=== PATIENT | female | born 1980 | race African-American/Black ===

== ENCOUNTER 2024-07-12 10:28 | Inpatient (IN) | payer MEDICARE ==
[~2024-07-12] VITALS: Ht 170.2 cm; Wt 104.8 kg
[2024-07-12 11:39] LABS: Urine Bacteria FEW /hpf (None Seen); Urine Blood Negative /uL (Negative); Urine Clarity Turbid (Clear); Urine Color Light-Yellow (Yellow); Urine Protein, UAD Negative (Negative); Urine Specific Gravity 1.006 (1.001-1.035); Urine Urobilinogen Normal (Negative); Urine WBC 4 /hpf (0 - 5); Urine pH 6.5 (5.0-9.0)
[2024-07-12 11:41] LABS: Basophils # (auto) 0 10 ^3/uL (0-0.2); Basophils % (auto) 0.7 % (0.0-2.0); Eosinophils # (auto) 0.7 10 ^3/uL (0-0.8); Eosinophils % (auto) 9.3 % (0.0-7.0); Hemoglobin 12.5 g/dL (12.2-16.2); Mean Corpuscular Hemoglobin 27.7 pg (28.0-32.0); Mean Corpuscular Hgb Conc. 34.6 g/dL (32.0-36.0); Mean Corpuscular Volume 80.2 fL (80.0-100.0); Monocytes # (auto) 0.8 10 ^3/uL (0-1.3); Monocytes % (auto) 11.5 % (0.0-12.0); Neutrophils # (auto) 2.6 10 ^3/uL (1.6-8.6); Neutrophils % (auto) 36.5 % (37.0-80.0); Nucleated Red Blood Cells % 0.1 %; Platelet Count (auto) 426 10^3/uL (140-450); Red Blood Cells 4.49 10^6/uL (4.0-5.20); Red Cell Distribution Width 14.7 % (11.8-14.3); White Blood Cell 7.1 10^3/uL (4.4-10.8)
[2024-07-12 11:43] LABS: Chloride 108 mmol/L (98-107); Potassium 3.6 mmol/L (3.5-5.1); Sodium 140 mmol/L (136-145)
[2024-07-12 11:44] LABS: Anion Gap 5 (5-15); Calcium 9.6 mg/dL (8.7-10.4); Carbon Dioxide 27 mmol/L (20-31)
[2024-07-12 11:49] LABS: BUN/Creatinine Ratio 11.5 (10.0-20.0); Blood Urea Nitrogen 6 mg/dL (9-23); Glucose 120 mg/dL (74-106)
[2024-07-12] MEDS: HYDROcodone-ACET 5/325MG TAB PO ONE (19:02)
[2024-07-12] MEDS ORDERED: MORPHINE SULFATE INJ 2 MG/ml SYRG IV PRN (23:30)
[2024-07-13] VITALS (8 sets, daily range): BP systolic 132–142; BP diastolic 76–92; PULSE 63–92; RESP 15–92; TEMP 97.3–98.1; O2SAT 92–98
[2024-07-13 00:20] LABS: Erythrocyte Sedimentation Rate 19 mm/hr (0-20)
[2024-07-13 06:41] LABS: Basophils % (auto) 0.8 % (0.0-2.0); Eosinophils # (auto) 0.6 10 ^3/uL (0-0.8); Nucleated Red Blood Cells % 0.1 %
[2024-07-13 06:45] LABS: Basophils # (auto) 0.1 10 ^3/uL (0-0.2); Eosinophils % (auto) 8.8 % (0.0-7.0); Hematocrit 35.4 % (36.0-46.0); Hemoglobin 11.7 g/dL (12.2-16.2); Lymphocytes # (auto) 2.9 10 ^3/uL (0.4-5.4); Lymphocytes % (auto) 43.2 % (10.0-50.0); Mean Corpuscular Hemoglobin 27.5 pg (28.0-32.0); Mean Corpuscular Volume 83.4 fL (80.0-100.0); Monocytes # (auto) 0.8 10 ^3/uL (0-1.3); Monocytes % (auto) 11.2 % (0.0-12.0); Neutrophils # (auto) 2.4 10 ^3/uL (1.6-8.6); Platelet Count (auto) 375 10^3/uL (140-450); Red Blood Cells 4.25 10^6/uL (4.0-5.20); Red Cell Distribution Width 14.8 % (11.8-14.3); White Blood Cell 6.7 10^3/uL (4.4-10.8)
[2024-07-13] MEDS: HYDROcodone-ACET 5/325MG TAB PO PRN (08:43)
[2024-07-13 10:18] LABS: Alanine Aminotransferase 19 U/L (7-40); Alkaline Phosphatase 96 U/L (46-116); Anion Gap 8 (5-15); Aspartate Aminotransferase 12 U/L (13-40); Bilirubin, Total 0.5 mg/dL (0.2-1.0); Blood Urea Nitrogen 6 mg/dL (9-23); Calcium 10.1 mg/dL (8.7-10.4); Carbon Dioxide 25 mmol/L (20-31); Chloride 107 mmol/L (98-107); Glucose 105 mg/dL (74-106); Potassium 3.9 mmol/L (3.5-5.1); Sodium 140 mmol/L (136-145); Total Protein 7.7 g/dL (5.7-8.2)
[2024-07-13 12:10] LABS: Free T3 7.43 pg/mL (2.3-4.2); Free T4 (Free Thyroxine) 2.68 ng/dL (0.89-1.76)
[2024-07-13] MEDS: FUROSEMIDE 40 MG/4 ML VIAL IV ONE (15:59)
[2024-07-13 17:43] LABS: Amphetamine Screen, Urine Neg (NEGATIVE); Barbiturate Scree,Urine Neg (NEGATIVE); Benzodiazephine Screen, Urine Neg (NEGATIVE); Cannabinoid Screen, Urine Neg (NEGATIVE); Cocaine Screen, Urine Neg (NEGATIVE); Opiate Scree,Urine Neg (NEGATIVE); Phencyclidine Screen, Urine Neg (NEGATIVE)
[2024-07-13] MEDS: ENOXAPARIN SOD 40 MG/0.4 ML SYRINGE SC ONE (18:14)
[2024-07-13] MEDS: methIMAzole 5 MG TAB PO ONE (21:14)
[2024-07-14] VITALS (9 sets, daily range): BP systolic 120–145; BP diastolic 66–84; PULSE 72–93; RESP 16–20; TEMP 97.5–98.7; O2SAT 93–99
[2024-07-14] MEDS: methIMAzole 5 MG TAB PO SCH (10:01)
[2024-07-14] MEDS: ENOXAPARIN SOD 40 MG/0.4 ML SYRINGE SC SCH (10:01)
[2024-07-14 15:32] LABS: INR 1.03 (0.9-1.15); Prothrombin Time 10.9 sec (9.3-11.8)
[2024-07-14] MEDS ORDERED: ACETAMINOPHEN 325 MG TAB PO PRN (16:45)
[2024-07-14] MEDS: ACETAMINOPHEN 325 MG TAB PO ONE (17:03)
[2024-07-15] VITALS (10 sets, daily range): BP systolic 119–137; BP diastolic 72–80; PULSE 81–94; RESP 17–20; TEMP 97.6–98; O2SAT 93–100
[2024-07-15] MEDS: ALBUTEROL SULF 2.5 MG/0.5ML(0.5%) NEB SOLN NEB PRN (01:40)
[2024-07-15] MEDS: IPRATROPIUM BROM 0.5 MG/2.5ML INH SOL NEB PRN (01:40)
[2024-07-15 06:26] LABS: Anion Gap 6 (5-15); Carbon Dioxide 27 mmol/L (20-31); Chloride 105 mmol/L (98-107); Potassium 3.9 mmol/L (3.5-5.1); Sodium 138 mmol/L (136-145)
[2024-07-15 06:31] LABS: Glucose 97 mg/dL (74-106)
[2024-07-15 06:32] LABS: BUN/Creatinine Ratio 17.5 (10.0-20.0); Blood Urea Nitrogen 10 mg/dL (9-23)
[2024-07-15 06:36] LABS: Basophils # (auto) 0.1 10 ^3/uL (0-0.2); Eosinophils # (auto) 0.5 10 ^3/uL (0-0.8); Eosinophils % (auto) 7.3 % (0.0-7.0); Hemoglobin 12.9 g/dL (12.2-16.2); Lymphocytes # (auto) 3.6 10 ^3/uL (0.4-5.4); Lymphocytes % (auto) 49.3 % (10.0-50.0); Mean Corpuscular Hemoglobin 27.3 pg (28.0-32.0); Mean Corpuscular Volume 80.4 fL (80.0-100.0); Monocytes # (auto) 0.9 10 ^3/uL (0-1.3); Monocytes % (auto) 12.3 % (0.0-12.0); Neutrophils # (auto) 2.2 10 ^3/uL (1.6-8.6); Neutrophils % (auto) 30.1 % (37.0-80.0); Nucleated Red Blood Cells % 0.3 %; Platelet Count (auto) 444 10^3/uL (140-450); Red Blood Cells 4.73 10^6/uL (4.0-5.20); Red Cell Distribution Width 14.8 % (11.8-14.3); White Blood Cell 7.3 10^3/uL (4.4-10.8)
[2024-07-15 10:06] LABS: Immunoglobulin A 338 mg/dL (87-352); Immunoglobulin G, Serum 2005 mg/dL (586-1602); Immunoglobulin M 116 mg/dL (26-217)
[2024-07-16 05:00] VITALS: BP 139/67; PULSE 84; RESP 20; TEMP 97.9; O2SAT 97
[2024-07-16 09:27] VITALS: BP 111/57; PULSE 91; RESP 18; TEMP 98; O2SAT 96
[2024-07-16] MEDS: BUPIVACAINE HCL 0.25% P/F 10 ML VIAL ONE (12:10)
[2024-07-16] MEDS: fentaNYL CITRATE 100 MCG/2 ML VL IV ONE (12:10)
[2024-07-16] MEDS: MIDAZOLAM HCL 2MG/2ML 2ml VIAL (1mg/ml) IV ONE (12:10)
[2024-07-16] MEDS: LIDOCAINE 2%HCL (LOCAL ANESTH.) INJ 10ml MDV ONE (12:10)
[2024-07-16 13:00] VITALS: BP 121/75; PULSE 89; RESP 17; TEMP 98; O2SAT 97
[2024-07-16 14:21] VITALS: O2SAT 97
[2024-07-16] MEDS ORDERED: TRAM-626 PO (15:33)
[2024-07-16] MEDS ORDERED: METH5TAB98 PO (15:33)
[2024-07-16 17:01] VITALS: BP 130/93; PULSE 82; RESP 18; TEMP 98.1; O2SAT 98
[2024-07-17 07:06] LABS: Alpha-1-Globulin 0.3 g/dL (0.0-0.4); Alpha-2-Globulin 0.9 g/dL (0.4-1.0); Gamma Globulin 2.1 g/dL (0.4-1.8); Globulin Total 4.3 g/dL (2.2-3.9); Protein Total Serum 7.3 g/dL (6.0-8.5)
[2024-07-18 08:06] LABS: Immunoglobulin A 364 mg/dL (87-352); Immunoglobulin G, Serum 2138 mg/dL (586-1602); Immunoglobulin M 140 mg/dL (26-217)
[2024-07-20 08:06] LABS: Albumin 3.1 g/dL (2.9-4.4); Alpha-1-Globulin 0.3 g/dL (0.0-0.4); Alpha-2-Globulin 0.7 g/dL (0.4-1.0); Gamma Globulin 2.1 g/dL (0.4-1.8); Globulin Total 4.2 g/dL (2.2-3.9); Protein Total Serum 7.3 g/dL (6.0-8.5)
== END 2024-07-16 19:05 | disposition home or self-care (01) | DRG 552 ==
LOC: ER 10:28 → TELE 23:34 → TELE-EAST 07-13 11:30 → EAST 07-14 03:34
PROVIDERS: ADMIT Internal Medicine; ATTEND Emergency Medicine
DX: M54.16 Radiculopathy, lumbar region (principal); J45.901 Unspecified asthma with (acute) exacerbation; C96.9 Malignant neoplasm of lymphoid, hematopoietic and related tissue, unspecified; E66.9 Obesity, unspecified; G47.30 Sleep apnea, unspecified; M54.50 Low back pain, unspecified; R20.2 Paresthesia of skin; G47.33 Obstructive sleep apnea (adult) (pediatric); E05.00 Thyrotoxicosis with diffuse goiter without thyrotoxic crisis or storm; M10.9 Gout, unspecified; Z68.36 Body mass index [BMI] 36.0-36.9, adult; Z88.0 Allergy status to penicillin; Z79.899 Other long term (current) drug therapy; Z83.3 Family history of diabetes mellitus; Z90.710 Acquired absence of both cervix and uterus
CPT/HCPCS: 36415; 71046; 72148; 73700; 76536; 80048; 80053; 80307; 81001; 81025; 82306; 82607; 82746; 82784; 83036; 83615; 84155; 84165; 84439; 84443; 84481; 84550; 85025; 85610; 85652; 86141; 86334; 93005; 93306; 93970; 94640; 97110; 97116; 97163; 97530; G0378; J2003; J2250; J3490

== ENCOUNTER 2025-06-18 15:37 | Inpatient (IN) | payer MEDICARE, MEDICAID ==
[~2025-06-18] VITALS: Ht 168.9 cm; Wt 102.8 kg
[~2025-06-18 15:37] MED LIST: METH5TAB98 PO; TRAM-626 PO
--- NOTE | 2025-06-18 16:34 | ED.PDOC ---
History of Present Illness HPI Comments 44-year-old female with a history of asthma, MAYTE, thyroid disease on methimazole complaining of right facial swelling, throat pain, right-sided neck swelling and pain radiating to the right lower jaw, onset 3 days ago. She denies fever, tooth pain, cough, vomiting, shortness of breath or difficulty swallowing. Chief Complaint: Face pain Time Seen by MD: 16:32 Primary Care Provider: Nahum James Notes: Nurses Notes, Medications, Allergies Allergies: Coded Allergies: Penicillins (Verified Allergy, Severe, 07/12/24) Home Meds Active Scripts Tramadol HCl (Tramadol HCl) 50 Mg Tab, 50 MG PO Q12HP PRN for 7 Days, #14 TAB Prov:SARA RODRIGUEZ MD 07/16/24 Methimazole (Methimazole) 5 Mg Tab, 5 MG PO BID for 30 Days, #60 TAB Prov:SARA RODRIGUEZ MD 07/16/24 Information Source: Patient Mode of Arrival: Ambulatory Severity: Moderate Timing: Days Duration: Since onset Prehospital treatment: None Past Medical History PAST MEDICAL HISTORY: Asthma, Thyroid Surgical History: Hysterectomy PROCEDURE ANALYST History: No Pertinent PROCEDURE ANALYST History Family History Family History: Reviewed,noncontributory to illness Social History Smoker: Non-Smoker Alcohol: Denies ETOH Use Drugs: Denies Drug Use Lives In: Home Constitutional: reports: others (RIGHT SIDED FACIAL SWELLING); denies: chills, diaphoresis, fatigue, fever, malaise, sweats, weakness EENTM: denies: blurred vision, double vision, ear bleeding, ear discharge, ear drainage, ear pain, ear ringing, eye pain, eye redness, hearing loss, mouth pain, mouth swelling, nasal discharge, nose bleeding, nose congestion, nose pain, photophobia, tearing, throat pain, throat swelling, voice changes, others Respiratory: denies: cough, hemoptysis, orthopnea, SOB at rest, shortness of breath, SOB with excertion, stridor, wheezing, others Cardiovascular: denies: chest pain, dizzy spells, diaphoresis, Dyspnea on exertion, edema, irregular heart beat, left arm pain, lightheadedness, palpitations, PND, syncope, others Gastrointestinal: denies: abdomen distended, abdominal pain, blood streaked bowels, constipated, diarrhea, dysphagia, difficulty swallowing, hematemesis, melena, nausea, poor appetite, poor fluid intake, rectal bleeding, rectal pain, vomiting, others Genitourinary: denies: abnormal vagina bleeding, burning, dyspareunia, dysuria, flank pain, frequency, hematuria, incontinence, pain, , vagina discharge, urgency, others Neurological: denies: dizziness, fainting, headache, left sided numbness, left sided weakness, numbness, paresthesia, pre-existing deficit, right sided numbness, right sided weakness, seizure, speech problems, tingling, tremors, weakness, others Musculoskeletal: denies: back pain, gout, joint pain, joint swelling, muscle pain, muscle stiffness, neck pain, others Integumetry: denies: bruises, change in color, change in hair/nails, dryness, laceration, lesions, lumps, rash, wounds, others Allergic/Immunocompromised: denies: Difficulty Healing, Frequent Infections, Hives, Itching, others Hematologic/Lymphatic: denies: anemia, blood clots, easy bleeding, easy bruising, swollen glands, others Endocrine: denies: excessive hunger, excessive sweating, excessive thirst, excessive urination, flushing, intolerance to cold, intolerance to heat, unexplained weight gain, unexplained weight loss, others Psychiatric: denies: anxiety, bipolar disorder, depression, hopeless, panic disorder, schizophrenia, sleepless, suicidal, others All Other Systems: Reviewed and Negative Physical Exam General Appearance: Mild Distress HEENT: PERRL/EOMI, Pharyngeal Erythema, Other (Right facial soft tissue swelling and tenderness. Right-sided pharyngeal and tonsillar erythema and edema. No exudate or uvular deviation.) Neck: Full Range of Motion, Other (Right lateral neck soft tissue tenderness and cervical chain lymphadenopathy) Respiratory: Chest Non-Tender, Lungs Clear, No Respiratory Distress, Normal Breath Sounds Cardiovascular: No Edema, No JVD, Regular Rate/Rhythm Breast Exam: Deferred Gastrointestinal: Non Tender, Soft Genitalia: Deferred Pelvic: Deferred Rectal: Deferred Extremities: Normal inspection, Normal range of motion, Non-tender, No pedal edema Neurologic: Alert (Oriented x4), Normal Affect, Normal Mood, Other (Ambulatory) Cerebellar Function: NOT DONE Reflexes: NOT DONE Skin: Dry, Normal Color, Warm Lymphatic: NOT DONE Was a procedure done? Was a procedure done?: No Differential Dx Considerations may include: Facial cellulitis, abscess, dental infection, tonsillitis, pharyngitis, lymphadenitis, among others X-Ray, Labs, Meds, VS Vital Signs Date Time Temp Pulse Resp B/P (MAP) Pulse Ox O2 Delivery O2 Flow Rate FiO2 06/18/25 17:35 73 22 143/95 06/18/25 16:57 96 18 143/95 (111) 96 06/18/25 16:57 73 18 96 Room Air 06/18/25 15:40 98.4 74 18 145/97 96 98.4 Lab Test 06/18/25 17:22 Range/Units White Blood Count 8.6 4.4-10.8 10^3/uL Red Blood Count 5.10 4.0-5.20 10^6/uL Hemoglobin 14.7 12.2-16.2 g/dL Hematocrit 42.7 36.0-46.0 % Mean Corpuscular Volume 83.9 80.0-100.0 fL Mean Corpuscular Hemoglobin 28.8 28.0-32.0 pg Mean Corpuscular Hemoglobin Concent 34.4 32.0-36.0 g/dL Red Cell Distribution Width 15.2 H 11.8-14.3 % Platelet Count 442 140-450 10^3/uL Mean Platelet Volume 7.8 6.9-10.8 fL Neutrophils (%) (Auto) 47.2 37.0-80.0 % Lymphocytes (%) (Auto) 39.0 10.0-50.0 % Monocytes (%) (Auto) 8.4 0.0-12.0 % Eosinophils (%) (Auto) 4.2 0.0-7.0 % Basophils (%) (Auto) 1.2 0.0-2.0 % Neutrophils # (Auto) 4.1 1.6-8.6 10 ^3/uL Lymphocytes # (Auto) 3.4 0.4-5.4 10 ^3/uL Monocytes # (Auto) 0.7 0-1.3 10 ^3/uL Eosinophils # (Auto) 0.4 0-0.8 10 ^3/uL Basophils # (Auto) 0.1 0-0.2 10 ^3/uL Nucleated Red Blood Cells 0.2 % Sodium Level 138 136-145 mmol/L Potassium Level 3.9 3.5-5.1 mmol/L Chloride Level 106 98-107 mmol/L Carbon Dioxide Level 23 20-31 mmol/L Anion Gap 9 5-15 Blood Urea Nitrogen 8 L 9-23 mg/dL Creatinine 0.84 0.550-1.02 mg/dL Glomerular Filtration Rate Calc 87 >90 mL/min BUN/Creatinine Ratio 9.5 L 10.0-20.0 Serum Glucose 90 74-106 mg/dL Lactic Acid Level 1.0 0.4-2.0 mmol/L Calcium Level 9.4 8.7-10.4 mg/dL Total Bilirubin 0.4 0.2-1.0 mg/dL Aspartate Amino Transferase (AST) 12 L 13-40 U/L Alanine Aminotransferase (ALT) 10 7-40 U/L Alkaline Phosphatase 102 46-116 U/L Total Protein 8.7 H 5.7-8.2 g/dL Albumin 4.4 3.2-4.8 g/dL Current Medications Medications (Trade) Dose Ordered Sig/Vargas Route Start Time Stop Time Status Last Admin Sodium Chloride 1,000 ml @ 1,000 mls/hr Q1H ONCE IV 06/18/25 17:00 06/18/25 17:59 DC 06/18/25 17:07 Morphine Sulfate 4 mg ONCE ONCE IV 06/18/25 17:00 06/18/25 17:01 DC 06/18/25 17:35 Ondansetron HCl (Zofran) 4 mg ONCE ONCE IV 06/18/25 17:00 06/18/25 17:01 DC 06/18/25 17:34 Clindamycin Phosphate 50 ml @ 50 mls/hr ONCE ONCE IV 06/18/25 17:00 06/18/25 17:59 DC 06/18/25 17:34 PROCEDURE(s): FAC2C - MAXILLOFACIAL WITHOUT REASON: R face/neck pain/swelling ORDER NUMBER(s): [id number], ACCESSION NUMBER(s): [id number] CT MAXILLOFACIAL WITHOUT INDICATION: R face/neck pain/swelling TECHNIQUE: Noncontrast axial images of the facial bones are then obtained along with coronal and sagittal reformatted images. All CT scans at this facility use dose modulation, iterative reconstruction, and/or weight based dosing when appropriate to reduce radiation dose to as low as reasonably achievable. COMPARISON: CT PELVIS WO CONTRAST on DOS: 07/16/24 FINDINGS: Asymmetric prominence of the oyzqt-flmazuc-ynyq-left palatine tonsils and correlate with clinical exam for tonsillitis. No definitive drainable fluid collection. Multiple prominent bilateral cervical chain lymph nodes. Parotid glands are symmetric. Submandibular glands are symmetric. Thyroid gland is symmetric. Minimal to mild scattered paranasal sinus opacification. Dental cavities and underlying gingival infection can not be excluded and recommend direct visualization if clinically indicated IMPRESSION: 1. Asymmetric prominence of the pwwvp-lrjmteh-vzur-left palatine tonsils and correlate with clinical exam for tonsillitis. 2. If continued clinical concern, consider further evaluation with intravenous contrast. PROCEDURE(s): NKICT - NECK WITHOUT CONTRAST REASON: R face/neck pain/swelling ORDER NUMBER(s): [id number], ACCESSION NUMBER(s): [id number] COMPUTERIZED TOMOGRAPHY OF THE CERVICAL SPINE, NONCONTRAST REASON FOR EXAM: R face/neck pain/swelling COMPARISON: US THYROID on DOS: 07/13/24, CT HEAD WITHOUT CONTRAST on DOS: 11/18/23 TECHNIQUE: CT of the entire cervical spine was performed in routine fashion with sagittal and coronal reconstructions. Soft tissues and bone windows were filmed. Radiation optimization: All CT scans at this facility use at least one of these dose optimization techniques: Automated exposure control mA and/or kV adjustment per patient size (includes targeted exams where dose is matched to clinical indication) or iterative reconstruction. RADIATION DOSE: CTDI: 27 mGy DLP: 698 mGy-cm FINDINGS: The vertebral bodies are normal in height and alignment with no evide nce of fracture. There is mild reversal of the normal cervical lordosis which may be secondary to patient positioning or muscular spasm. There is moderate disc height loss C3-C7 with endplate hypertrophy. No severe bony neural foraminal or spinal canal narrowing is identified. 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 There is chronic fracture of the tip of the dens. There is widening of the atlantodental interval. No acute fracture is identified. There are numerous borderline enlarged lymph nodes in the anterior cervical chain bilaterally. The prevertebral soft tissues are within normal limits. The visualized lung apices are grossly clear. IMPRESSION: No evidence of acute fracture of the cervical spine. Chronic fracture of the tip of the dens. There is also widening of the atlantodental interval that may be chronic or related to acute ligamentous injury at the craniocervical junction. Further evaluation with MRI is recommended. Moderate degenerative disc disease C3-C7. X-Ray, Labs, Meds, VS Comment 44-year-old female with a history of asthma and thyroid disease on methimazole complaining of right facial, neck and lower jaw pain and swelling Vitals remarkable for BP 145/97 Exam remarkable for right facial soft tissue swelling, right greater than left pharyngeal and tonsillar erythema and right tonsillar prominence, right neck soft tissue swelling and cervical chain lymphadenopathy Rhythm strip independently interpreted by me: Sinus rhythm, rate 74, no ectopy. CT maxillofacial and neck unremarkable for possible tonsillitis, cervical chain lymphadenopathy, dental caries, no evidence of abscess. CBC, CMP and lactate unremarkable Patient treated with the following in the ED: 1 L 0.9 normal saline IV bolus, morphine 4 mg IV, Zofran 4 mg IV, clindamycin 900 mg IV On re-evaluation, patient states she is still in pain. Vitals were stable. Plan is to admit the patient for pain control and IV antibiotic treatment. She may follow-up with a dentist as an outpatient. Time of 1ST Reevaluation: 17:02 Reevaluation 1ST: Unchanged Patient Education/Counseling: Diagnosis, Treatment Family Education/Counseling: No Family Present SEPSIS Sepsis Screen Date sepsis recognized/suspect: Jun 18, 2025 Time Sepsis recognized/suspect: 1739 Recent Procedure: No On Antibiotic Therapy: No Respiratory Rate >20: No Heart Rate >90: No Temp<36 C (96.8 F) or >38.3 C: No SBP <90 or MAP <65 mmHG: No New Acute Mental Status Change: No Is the patient on CPAP, BIPAP,: No Physician Orders Blood Culture (06/18/25 16:54) Maxillofacial Without (06/18/25 16:54) Neck Without Contrast (06/18/25 16:54) Vital Signs Date Time Temp Pulse Resp B/P (MAP) Pulse Ox O2 Delivery O2 Flow Rate FiO2 06/18/25 17:35 73 22 143/95 06/18/25 16:57 96 18 143/95 (111) 96 06/18/25 16:57 73 18 96 Room Air 06/18/25 15:40 98.4 74 18 145/97 96 98.4 Laboratory Tests Test 06/18/25 17:22 Lactic Acid Level 1.0 mmol/L (0.4-2.0) White Blood Count 8.6 10^3/uL (4.4-10.8) Medications Medications Dose Ordered Sig/Vargas Route Start Time Stop Time Status Last Admin Dose Admin Clindamycin Phosphate 50 ml @ 50 mls/hr ONCE ONCE IV 06/18/25 17:00 06/18/25 17:59 DC 06/18/25 17:34 Morphine Sulfate 4 mg ONCE ONCE IV 06/18/25 17:00 06/18/25 17:01 DC 06/18/25 17:35 Ondansetron HCl 4 mg ONCE ONCE IV 06/18/25 17:00 06/18/25 17:01 DC 06/18/25 17:34 Sodium Chloride 1,000 ml @ 1,000 mls/hr Q1H ONCE IV 06/18/25 17:00 06/18/25 17:59 DC 06/18/25 17:07 Departure 1 Departure Time of Disposition: 19:45 Impression: Primary Impression: Facial cellulitis Additional Impressions: Tonsillitis Dental infection Disposition: ADMITTED INPATIENT Admit to: Med Surg Condition: Fair Critical Care Note Critical Care Time?: No Stability Stability form required: No Heart Score Heart Score: Heart Score Response (Comments) Value History N/A 0 EKG N/A 0 Age N/A 0 Risk Factors N/A 0 Troponin N/A 0 Total 0 I personally scribed for SUMA CALVERT MD ([email or web address]) on 06/18/25 at 16:34. Electronically submitted by Teagan Leonard ([email or web address]). I personally scribed for SUMA CALVERT MD ([email or web address]) on 06/18/25 at 18:56. Electronically submitted by Teagan Leonard ([email or web address]). I personally scribed for SUMA CALVERT MD ([email or web address]) on 06/18/25 at 18:57. Electronically submitted by Teagan eLonard ([email or web address]). SUMA CALVERT MD Jun 18, 2025 16:34
[2025-06-18] MEDS: SODIUM CHLORIDE 0.9% 1,000 ML IV ONE (17:07)
[2025-06-18] MEDS: CLINDAMYCIN 900MG IV 50 ML IV ONE (17:34)
[2025-06-18] MEDS: ONDANSETRON HCL 4 MG/2 ML VIAL IV ONE (17:34)
[2025-06-18] MEDS: MORPHINE SULFATE 4 MG/ML SYR/VIAL IV ONE (17:35)
[2025-06-18 17:59] LABS: Alanine Aminotransferase 10 U/L (7-40); Alkaline Phosphatase 102 U/L (46-116); Anion Gap 9 (5-15); BUN/Creatinine Ratio 9.5 (10.0-20.0); Calcium 9.4 mg/dL (8.7-10.4); Carbon Dioxide 23 mmol/L (20-31); Chloride 106 mmol/L (98-107); Glucose 90 mg/dL (74-106); Potassium 3.9 mmol/L (3.5-5.1); Sodium 138 mmol/L (136-145)
[2025-06-18 18:00] LABS: Albumin 4.4 g/dL (3.2-4.8); Bilirubin, Total 0.4 mg/dL (0.2-1.0)
--- NOTE | 2025-06-18 18:03 | DVH ---
CT MAXILLOFACIAL WITHOUT INDICATION: R face/neck pain/swelling TECHNIQUE: Noncontrast axial images of the facial bones are then obtained along with coronal and sagi ttal reformatted images. All CT scans at this facility use dose modulation, iterative reconstruction, and/or weight based dosing when appropriate to reduce radiation dose to as low as reasonably achieva ble. COMPARISON: CT PELVIS WO CONTRAST on DOS: 07/16/24 FINDINGS: Asymmetric prominence of the edksn-twffzso-upra-left palatine tonsils and correlate with clinical exa m for tonsillitis. No definitive drainable fluid collection. Multiple prominent bilateral cervical chain lymph nodes. Parotid glands are symmetric. Submandibular glands are symmetric. Thyroid gland is symmetric. Minimal to mild scattered paranasal sinus opacification. Dental cavities and underlying gingival infe ction can not be excluded and recommend direct visualization if clinically indicated IMPRESSION: 1. Asymmetric prominence of the kjfzn-karqtje-nywt-left palatine tonsils and correlate with clinical exam for tonsillitis. 2. If continued clinical concern, consider further evaluation with intravenous contrast.
--- NOTE | 2025-06-18 18:08 | DVH ---
COMPUTERIZED TOMOGRAPHY OF THE CERVICAL SPINE, NONCONTRAST REASON FOR EXAM: R face/neck pain/swelling COMPARISON: US THYROID on DOS: 07/13/24, CT HEAD WITHOUT CONTRAST on DOS: 11/18/23 TECHNIQUE: CT of the entire cervical spine was performed in routine fashion with sagittal and vila l reconstructions. Soft tissues and bone windows were filmed. Radiation optimization: All CT scans a t this facility use at least one of these dose optimization techniques: Automated exposure control mA and/or kV adjustment per patient size (includes targeted exams where dose is matched to clinical ind ication) or iterative reconstruction. RADIATION DOSE: CTDI: 27 mGy DLP: 698 mGy-cm FINDINGS: The vertebral bodies are normal in height and alignment with no evidence of fracture. The re is mild reversal of the normal cervical lordosis which may be secondary to patient positioning or muscular spasm. There is moderate disc height loss C3-C7 with endplate hypertrophy. No severe bony ne ural foraminal or spinal canal narrowing is identified. There is ossification of the posterior longit udinal ligament dorsal to the bodies of C4 and C5. There is chronic fracture of the tip of the dens. There is widening of the atlantodental interval. No acute fracture is identified. There are numerous borderline enlarged lymph nodes in the anterior cervical chain bilaterally. The prevertebral soft tis sues are within normal limits. The visualized lung apices are grossly clear. IMPRESSION: No evidence of acute fracture of the cervical spine. Chronic fracture of the tip of the dens. There is also widening of the atlantodental interval that m ay be chronic or related to acute ligamentous injury at the craniocervical junction. Further evaluati on with MRI is recommended. Moderate degenerative disc disease C3-C7.
[2025-06-18 18:14] LABS: Blood Urea Nitrogen 8 mg/dL (9-23); Total Protein 8.7 g/dL (5.7-8.2)
[2025-06-18 19:33] LABS: Hematocrit 42.7 % (36.0-46.0); Hemoglobin 14.7 g/dL (12.2-16.2); Mean Corpuscular Hemoglobin 28.8 pg (28.0-32.0); Mean Corpuscular Volume 83.9 fL (80.0-100.0); Nucleated Red Blood Cells % 0.2 %
--- NOTE | 2025-06-18 22:54 | DVHHPRES ---
History of Present Illness Resident Creating Document: ABY DAVIS RESIDENT History of Present Illness Angel Vazquez is a 44-year-old female with past medical history of asthma, MAYTE, thyroid disease came to the ED with chief complaints of right-sided facial swelling, 10/10 in intensity, sharp, constant throat pain which increases when swallowing and pain radiating to the right lower jaw since 3 days, patient denied any tooth pain, airway obstruction, trouble breathing.. She also complains of mild shortness of breath when sleeping and has to catch her breath. She also complained of burning sensation in the urine, denies hematuria, dysuria, nausea, vomiting, fevers, chills. Surgery consulted, IV clindamycin given, patient is admitted for further management. Surgical history: Hysterectomy Family history: Reviewed, noncontributory Personal history: Denies smoking, drinking, drug use Lives with: Family PCP: Review of Systems Constitutional: Yes: Chills; No: Fever, Sweats, Weakness, Malaise, Other Eyes: No: Pain, Vision change, Conjunctivae inflammation, Eyelid inflammation, Other, Redness ENT: Throat pain, Throat swelling; No: Ear pain, Ear discharge, Nose pain, Nose discharge, Nose congestion, Mouth pain, Mouth swelling, Other Respiratory: No: Cough, Dry, Shortness of breath, SOB with excertion, Wheezing, Hemoptysis, Pleuritic Pain, Sputum, Wheezing, Other Cardiovascular: No: Chest Pain, Palpitations, Orthopnea, Paroxysmal Noc. Dyspnea, Edema, Lt Headedness, Other Gastrointestinal: No: Nausea, Vomiting, Abdominal Pain, Diarrhea, Constipation, Melena, Hematochezia, Other Genitourinary: Dysuria; No Frequency, No Incontinence, No Hematuria, No Retention, No Other Musculoskeletal: No: other, neck pain, shoulder pain, arm pain, back pain, hand pain, leg pain, foot pain Skin: No: Rash, Lesions, Jaundice, Bruising, Other Neurological: No: Weakness, Numbness, Incoordination, Change in speech, Confusion, Seizures, Other Allergies: Coded Allergies: Penicillins (Verified Allergy, Severe, 07/12/24) Exam Vital Signs Vital Signs Date Time Temp Pulse Resp B/P (MAP) Pulse Ox O2 Delivery O2 Flow Rate FiO2 06/18/25 22:25 97.7 69 12 145/87 (106) 96 97.7 06/18/25 16:57 Room Air Exam General: Patient alert and oriented in person, place and time. Patient following commands. In severe distress HEENT: Normocephalic, atraumatic, moist mucous membranes, right-sided facial swelling, uvula midline, right tonsillar enlargement, Chelosis on right angle of mouth Respiratory/pulmonary: Clear lungs bilaterally, vesicular murmurs present in almost all lung delgado, no associated crackles or wheezes. Cardiovascular: Normal heart sounds S1 and S2 with no associated murmurs Abdomen: Abdomen nondistended, there is no pain to palpation in any of the abdominal quadrants, no palpable masses. Extremities: There is no peripheral edema present at the lower extremities. Peripheral Pulses: 3+ Radial (R). 3+ Radial (L). 3+ Dorsalis pedis (R). 3+ Dorsalis pedis(L) Skin: No rashes or pruritus, there is no sacral edema present at this time. Neurological: Intact cranial nerves with no focal neurologic deficits Psych/mood: Normal Labs/Xrays Labs Test 06/18/25 17:22 Range/Units White Blood Count 8.6 4.4-10.8 10^3/uL Red Blood Count 5.10 4.0-5.20 10^6/uL Hemoglobin 14.7 12.2-16.2 g/dL Hematocrit 42.7 36.0-46.0 % Mean Corpuscular Volume 83.9 80.0-100.0 fL Mean Corpuscular Hemoglobin 28.8 28.0-32.0 pg Mean Corpuscular Hemoglobin Concent 34.4 32.0-36.0 g/dL Red Cell Distribution Width 15.2 H 11.8-14.3 % Platelet Count 442 140-450 10^3/uL Mean Platelet Volume 7.8 6.9-10.8 fL Neutrophils (%) (Auto) 47.2 37.0-80.0 % Lymphocytes (%) (Auto) 39.0 10.0-50.0 % Monocytes (%) (Auto) 8.4 0.0-12.0 % Eosinophils (%) (Auto) 4.2 0.0-7.0 % Basophils (%) (Auto) 1.2 0.0-2.0 % Neutrophils # (Auto) 4.1 1.6-8.6 10 ^3/uL Lymphocytes # (Auto) 3.4 0.4-5.4 10 ^3/uL Monocytes # (Auto) 0.7 0-1.3 10 ^3/uL Eosinophils # (Auto) 0.4 0-0.8 10 ^3/uL Basophils # (Auto) 0.1 0-0.2 10 ^3/uL Nucleated Red Blood Cells 0.2 % Sodium Level 138 136-145 mmol/L Potassium Level 3.9 3.5-5.1 mmol/L Chloride Level 106 98-107 mmol/L Carbon Dioxide Level 23 20-31 mmol/L Anion Gap 9 5-15 Blood Urea Nitrogen 8 L 9-23 mg/dL Creatinine 0.84 0.550-1.02 mg/dL Glomerular Filtration Rate Calc 87 >90 mL/min BUN/Creatinine Ratio 9.5 L 10.0-20.0 Serum Glucose 90 74-106 mg/dL Lactic Acid Level 1.0 0.4-2.0 mmol/L Calcium Level 9.4 8.7-10.4 mg/dL Total Bilirubin 0.4 0.2-1.0 mg/dL Aspartate Amino Transferase (AST) 12 L 13-40 U/L Alanine Aminotransferase (ALT) 10 7-40 U/L Alkaline Phosphatase 102 46-116 U/L Total Protein 8.7 H 5.7-8.2 g/dL Albumin 4.4 3.2-4.8 g/dL SEPSIS Sepsis Screen Date sepsis recognized/suspect: Jun 18, 2025 Time Sepsis recognized/suspect: 1739 Recent Procedure: No On Antibiotic Therapy: No Respiratory Rate >20: No Heart Rate >90: No Temp<36 C (96.8 F) or >38.3 C: No SBP <90 or MAP <65 mmHG: No New Acute Mental Status Change: No Is the patient on CPAP, BIPAP,: No Physician Orders Blood Culture (06/18/25 16:54) Maxillofacial Without (06/18/25 16:54) Neck Without Contrast (06/18/25 16:54) Admit (06/18/25 22:52) Vital Signs Date Time Temp Pulse Resp B/P (MAP) Pulse Ox O2 Delivery O2 Flow Rate FiO2 06/18/25 22:25 97.7 69 12 145/87 (106) 96 97.7 06/18/25 17:35 73 22 143/95 06/18/25 16:57 96 18 143/95 (111) 96 06/18/25 16:57 73 18 96 Room Air 06/18/25 15:40 98.4 74 18 145/97 96 98.4 Laboratory Tests Test 06/18/25 17:22 Lactic Acid Level 1.0 mmol/L (0.4-2.0) White Blood Count 8.6 10^3/uL (4.4-10.8) Medications Medications Dose Ordered Sig/Vargas Route Start Time Stop Time Status Last Admin Dose Admin Clindamycin Phosphate 50 ml @ 50 mls/hr ONCE ONCE IV 06/18/25 17:00 06/18/25 17:59 DC 06/18/25 17:34 50 MLS/HR Morphine Sulfate 4 mg ONCE ONCE IV 06/18/25 17:00 06/18/25 17:01 DC 06/18/25 17:35 4 MG Ondansetron HCl 4 mg ONCE ONCE IV 06/18/25 17:00 06/18/25 17:01 DC 06/18/25 17:34 4 MG Sodium Chloride 1,000 ml @ 1,000 mls/hr Q1H ONCE IV 06/18/25 17:00 06/18/25 17:59 DC 06/18/25 17:07 1,000 MLS/HR Assessment/Plan Assessment/Plan Assessment and plan # Acute grade 3 tonsillitis - CT maxilla facial showed Asymmetric prominence of the akebj-ycwdswr-yluq-left palatine tonsils - CT neck Chronic fracture of the tip of the dens. There is also widening of the atlantodental interval that may be chronic or related to acute ligamentous injury at the craniocervical junction. - IV clindamycin 900 t.i.d. - IV dexamethasone - IV Morphine - surgical consult, pending # Dysphagia due to acute tonsillits -- IV clindamycin 900 t.i.d. - IV dexamethasone - IV Morphine - surgical consult, pending # asthma, stable - continue home meds # obstructive sleep apnea - outpatient sleep study evaluation -avoid CPAP for now due to pain # hypothyroidism possibly Graves disease - continue home meds # obesity BMI 36.4 -patient counseled on weight loss, diet, lifestyle modifications for 13 minutes # migraines -continue home meds PPI prophylaxis: Pantoprazole DVT prophylaxis: Ambulatory Goals of care addressed with the patient for more than 31 minutes: Full code status Case discussed with , patient and nurse Plan discussed with: Patient My Orders Orders - ABY DAVIS Procedure Category Date Status Time Admit ADMIT 06/18/25 Verified 22:52 Date of Service: Jun 18, 2025 Billing Provider: SARA RODRIGUEZ MD Common Visit Codes: 29053-[id number] INP/OBS CARE (MOD) Secondary Visit Codes: 12373-[id number] CARE PLAN 30 MINUTES ABY DAVIS RESIDENT Jun 18, 2025 22:54 SCOTT MONTIEL Jun 19, 2025 08:23 SARA RODRIGUEZ MD Jun 19, 2025 19:36
[2025-06-19] VITALS (7 sets, daily range): BP systolic 118–149; BP diastolic 72–95; PULSE 66–88; RESP 16–20; TEMP 97.4–98.3; O2SAT 94–97
[2025-06-19] MEDS ORDERED: TOPI25TA84 PO (00:18)
[2025-06-19] MEDS ORDERED: LISI2.5T47 PO (00:18)
[2025-06-19] MEDS ORDERED: METH5TAB98 PO (00:18)
[2025-06-19] MEDS: methIMAzole 5 MG TAB PO SCH (05:47)
[2025-06-19] MEDS: CLINDAMYCIN 900MG IV 50 ML IV SCH (05:48)
[2025-06-19 07:08] LABS: Urine Protein, UAD Negative (Negative)
[2025-06-19] MEDS: LISINOPRIL 5 MG TAB PO SCH (09:57)
[2025-06-19] MEDS ORDERED: PATIENTS OWN MEDICATION (Lisinopril 5 MG) PO SCH (10:00)
[2025-06-19] MEDS: MORPHINE SULFATE INJ 2 MG/ml SYRG IV PRN (10:08)
[2025-06-19 11:41] LABS: INR 1.05 (0.9-1.15); Partial Thromboplastin Time 31.7 SEC (24.5-34.5); Prothrombin Time 11.1 sec (9.3-11.8)
[2025-06-19] MEDS: NYSTATIN (MOUTH-THROAT) 500,000 UNITS/5 ML SUSP MT SCH (11:41)
[2025-06-19] MEDS: NYSTATIN (MOUTH-THROAT) 500,000 UNITS/5 ML SUSP MT ONE (11:41)
[2025-06-19 11:45] LABS: Albumin 4.4 g/dL (3.2-4.8); Alkaline Phosphatase 104 U/L (46-116); Anion Gap 9 (5-15); BUN/Creatinine Ratio 9.8 (10.0-20.0); Calcium 9.5 mg/dL (8.7-10.4); Carbon Dioxide 22 mmol/L (20-31); Chloride 107 mmol/L (98-107); Magnesium 2.1 mg/dL (1.6-2.6); Potassium 3.8 mmol/L (3.5-5.1); Sodium 138 mmol/L (136-145); Triglycerides 55 mg/dL (< 150)
[2025-06-19 11:46] LABS: Alanine Aminotransferase < 9 U/L (7-40); Bilirubin, Total 0.8 mg/dL (0.2-1.0); Blood Urea Nitrogen 8 mg/dL (9-23); Cholesterol 144 mg/dL (< 200); Glucose 120 mg/dL (74-106); HDL Cholesterol 37 mg/dL (40-59); Total Protein 8.8 g/dL (5.7-8.2)
[2025-06-19 12:27] LABS: Rapid Strep A Screen-Throat Positive
[2025-06-19 13:41] LABS: Amphetamine Screen, Urine Neg (NEGATIVE); Barbiturate Scree,Urine Neg (NEGATIVE); Benzodiazephine Screen, Urine Neg (NEGATIVE); Cannabinoid Screen, Urine Neg (NEGATIVE); Cocaine Screen, Urine Neg (NEGATIVE); Opiate Scree,Urine Neg (NEGATIVE); Phencyclidine Screen, Urine Neg (NEGATIVE)
--- NOTE | 2025-06-19 14:13 | DVHINCON2 ---
Consultation - Surgical Date Seen: Jun 19, 2025 Referring Physician Reason for Consultation Tonsillitis History of Present Illness History of Present Illness Mrs. Vazquez is a 44-year-old female who presented to the ED yesterday due to pain in the mouth with swelling in the cheeks and neck area. The symptoms started approximately 2 weeks ago and she visited her dentist due to having an ingrowing right upper molar. Dentist at that time talked about possibly removing the molar but it did not happen. Antibiotics were prescribed at that time. States that the pain and swelling kept on slowly getting worse and 2 days ago it was not acutely. Patient denies any drain this from any of her teeth or gums. He has had multiple extractions in the past and currently has a fracture molar on the lower left side. He denies any infections like this in the past. Denies fevers, chills, nausea, vomiting. Denies any unprotected sexual intercourse. Past Medical/Surgical History Past Medical/Surgical History PMHasthma, MAYTE, thyroid disease Family and Social History Family and Social History Family history unremarkable for any cancers ETOH/T Ob/drugs denies Allergies and medications Allergies: Coded Allergies: Penicillins (Verified Allergy, Severe, 07/12/24) Home Meds Reported Medications Methimazole (Methimazole) 5 Mg Tab, 5 MG PO TID, TAB 06/19/25 Lisinopril (Lisinopril) 2.5 Mg Tab, 5 MG PO DAILY, TAB 06/19/25 Topiramate (Topiramate) 25 Mg Tab, 1 TAB PO BID PRN for MIGRAINE/PORTILLO 06/19/25 Review of systems Review of Systems: HEENT:Abnormal (See HPI), CVS:Normal, RESPIRATORY:Normal, GI:Normal, :Normal, MSK:Normal, NEURO:Normal Examination Vital signs Vital Signs Date Time Temp Pulse Resp B/P (MAP) Pulse Ox O2 Delivery O2 Flow Rate FiO2 06/19/25 10:08 70 17 149/95 06/19/25 05:00 97.7 94 97.7 06/19/25 00:10 Room Air* 0 21 Medications Current Medications Medications (Trade) Dose Ordered Sig/Vargas Route PRN Reason Start Time Stop Time Status Last Admin Clindamycin Phosphate 50 ml @ 50 mls/hr Q8HR IV 06/19/25 06:00 06/19/25 05:48 Morphine Sulfate 1 mg Q6HP PRN IV SEVERE PAIN (7-10 PAIN SCALE) 06/19/25 01:45 06/19/25 10:08 Methimazole (Tapazole) 5 mg TID PO 06/19/25 06:00 06/19/25 05:47 Topiramate (Topamax) 25 mg BID PRN PO MIGRAINE/PORTILLO 06/19/25 04:45 Patient Own Medication 5 mg DAILY PO 06/19/25 10:00 UNV Lisinopril (Zestril Tablet) 5 mg DAILY PO 06/19/25 10:00 06/19/25 09:57 Levofloxacin/ Dextrose 100 ml @ 100 mls/hr DAILY IV 06/20/25 10:00 Nystatin (Mycostatin (Mouth-Throat)) 5 ml QID MT 06/19/25 12:00 Laboratory Labs Test 06/19/25 11:00 06/19/25 10:36 06/19/25 06:49 06/18/25 17:22 Range/Units Group A Streptococcus Rapid Positive Prothrombin Time 11.1 9.3-11.8 sec Prothrombin Time INR 1.05 0.9-1.15 Activated Partial Thromboplast Time 31.7 24.5-34.5 SEC Sodium Level 138 136-145 mmol/L Potassium Level 3.8 3.5-5.1 mmol/L Chloride Level 107 98-107 mmol/L Carbon Dioxide Level 22 20-31 mmol/L Anion Gap 9 5-15 Blood Urea Nitrogen 8 L 9-23 mg/dL Creatinine 0.82 0.550-1.02 mg/dL Glomerular Filtration Rate Calc 89 >90 mL/min BUN/Creatinine Ratio 9.8 L 10.0-20.0 Serum Glucose 120 H 74-106 mg/dL Hemoglobin A1c 5.8 H <5.7 % A1C Lactic Acid Level 0.8 0.4-2.0 mmol/L Calcium Level 9.5 8.7-10.4 mg/dL Magnesium Level 2.1 1.6-2.6 mg/dL Total Bilirubin 0.8 0.2-1.0 mg/dL Aspartate Amino Transferase (AST) 13 13-40 U/L Alanine Aminotransferase (ALT) < 9 7-40 U/L Alkaline Phosphatase 104 46-116 U/L Total Protein 8.8 H 5.7-8.2 g/dL Albumin 4.4 3.2-4.8 g/dL Triglycerides Level 55 < 150 mg/dL Cholesterol Level 144 < 200 mg/dL LDL Cholesterol 96 < 100 mg/dL HDL Cholesterol 37 L 40-59 mg/dL Vitamin B12 Level 691 211-911 pg/mL Vitamin D 25-Hydroxy 29.4 L 30.0-100 ng/mL Thyroid Stimulating Hormone (TSH) < 0.01 L 0.55-4.78 uIU/mL Urine Color Light-yellow Yellow Urine Clarity Clear Clear Urine pH 7.0 5.0-9.0 Urine Specific [place] 1.011 1.001-1.035 Urine Protein Negative Negative Urine Ketones Negative Negative Urine Blood Trace H Negative /uL Urine Nitrite Negative Negative Urine Bilirubin Negative Negative Urine Urobilinogen Normal Negative mg/dL Urine Leukocyte Esterase Negative Negative /uL Urine RBC 1 0 - 4 /hpf Urine Microscopic WBC 3 0-5 /HPF Urine Squamous Epithelial Cells Few <5 /hpf Urine Bacteria Few H None Seen /hpf Urine Glucose Normal Normal mg/dL Urine Opiates Screen Neg NEGATIVE Urine Fentanyl Screen Neg NEGATIVE Urine Barbiturates Screen Neg NEGATIVE Urine Phencyclidine Screen Neg NEGATIVE Urine Amphetamines Screen Neg NEGATIVE Urine Benzodiazepines Screen Neg NEGATIVE Urine Cocaine Screen Neg NEGATIVE Urine Cannabinoids Screen Neg NEGATIVE White Blood Count 8.6 4.4-10.8 10^3/uL Red Blood Count 5.10 4.0-5.20 10^6/uL Hemoglobin 14.7 12.2-16.2 g/dL Hematocrit 42.7 36.0-46.0 % Mean Corpuscular Volume 83.9 80.0-100.0 fL Mean Corpuscular Hemoglobin 28.8 28.0-32.0 pg Mean Corpuscular Hemoglobin Concent 34.4 32.0-36.0 g/dL Red Cell Distribution Width 15.2 H 11.8-14.3 % Platelet Count 442 140-450 10^3/uL Mean Platelet Volume 7.8 6.9-10.8 fL Neutrophils (%) (Auto) 47.2 37.0-80.0 % Lymphocytes (%) (Auto) 39.0 10.0-50.0 % Monocytes (%) (Auto) 8.4 0.0-12.0 % Eosinophils (%) (Auto) 4.2 0.0-7.0 % Basophils (%) (Auto) 1.2 0.0-2.0 % Neutrophils # (Auto) 4.1 1.6-8.6 10 ^3/uL Lymphocytes # (Auto) 3.4 0.4-5.4 10 ^3/uL Monocytes # (Auto) 0.7 0-1.3 10 ^3/uL Eosinophils # (Auto) 0.4 0-0.8 10 ^3/uL Basophils # (Auto) 0.1 0-0.2 10 ^3/uL Nucleated Red Blood Cells 0.2 % Examination: GENERAL:Normal, HEENT:Abnormal (Visible bilateral cheek and neck edema, multiple missing dental pieces, fracture molar on the left lower aspect, no pus or drainage evident from the mouth. No exudates. Bilateral anterior cervical lymphadenopathy, tender. No supraclavicular or axillary adenopathy.) Problem List/Assessment/Plan Problems: (1) Dental infection Assessment and Plan Mrs. Vazquze is a 44-year-old female who presented with dental/tonsillar infection. She has been seen in the dentist previously for a ingrowing molar on her right upper jaw, that extraction was recommended but he still has not happened. CT was seen and is shows extensive right tonsillar, anterior cervical adenopathy bilaterally, no fluid collection seen. Physical exam was pretty unremarkable in regards to sources of infection, none were seen inside the mouth but bilateral cervical adenopathy was visibly seen and palpated. Surgery not indicated at this time. 1. Continue with antibiotics 2. Despite denying unprotected sexual intercourse, consider acute HIV infection 3. We will sign off at this time please call with any questions or concerns Plan discussed with Plan discussed with: Patient Visit Coding Surgery Date of Service if different f: Jun 19, 2025 Billing Provider: NAOMI NOLAN MD Surgery Visit Codes: 52620 - INP CONSULT <110 MIN NAOMI NOLAN MD Jun 19, 2025 14:13
--- NOTE | 2025-06-19 19:45 | DVHPNRES ---
Progress Note Date Seen: Jun 19, 2025 Resident Creating Document: JOAN CRUM RESIDENT Medical Necessity Reason Pt with a Central, PICC or Fol: No Subjective Review of Systems This is a 44-year-old female with past medical history of essential hypertension, migraine, thyroid disorder, MAYTE was use CPAP , hysterectomy came to ER with a complaint of right-sided angle of the mandible swelling and difficult to swallow for last 3 days. The patient reports swelling is getting worse day by day which is 10/10 intensity, sharp in nature, aggravated on swallowing and radiates to right neck area. Patient denies any recent dental extraction or any dental workup. Patient history of sick contact follow trauma. Patient denies any drain this from any of her teeth or gums. He has had multiple extractions in the past and currently has a fracture molar on the lower left side. Currently denies any fever, chest pain, headache, abdominal pain, dysuria or any other acute distress. Medical history:essential hypertension, migraine, thyroid disorder, MAYTE was use CPAP Surgical history: Hysterectomy Family history: Reviewed, noncontributory Personal history: Denies smoking, drinking, drug use Lives with: Family PCP: And seen and evaluated in bedside. Patient admits difficulty swallowing. Consult appreciated. No fever, chest pain or abdominal pain noted. Objective vital signs Vital Sign Date Time Temp Pulse Resp B/P (MAP) Pulse Ox O2 Delivery O2 Flow Rate FiO2 06/19/25 17:00 97.8 81 17 129/92 (104) 96 97.8 06/19/25 00:10 Room Air* 0 21 Total Intake and Output 06/18/25 06/18/25 06/19/25 15:00 23:00 07:00 Intake Total 50 ml Balance 50 ml medications Current Medications Medications Dose Ordered Sig/Vargas Route Start Time Stop Time Status Last Admin Dose Admin Clindamycin Phosphate 50 ml @ 50 mls/hr Q8HR IV 06/19/25 06:00 06/19/25 15:22 50 MLS/HR Morphine Sulfate 1 mg Q6HP PRN IV 06/19/25 01:45 06/19/25 10:08 1 MG Methimazole 5 mg TID PO 06/19/25 06:00 06/19/25 14:24 5 MG Topiramate 25 mg BID PRN PO 06/19/25 04:45 Patient Own Medication 5 mg DAILY PO 06/19/25 10:00 UNV Lisinopril 5 mg DAILY PO 06/19/25 10:00 06/19/25 09:57 5 MG Levofloxacin/ Dextrose 100 ml @ 100 mls/hr DAILY IV 06/20/25 10:00 Nystatin 5 ml QID MT 06/19/25 12:00 06/19/25 17:13 5 ML Albuterol 2.5 mg Q6HWA NEB 06/20/25 06:00 UNV Examination General: Patient alert and oriented in person, place and time. Patient following commands. In severe distress HEENT: Normocephalic, atraumatic, moist mucous membranes, right-sided facial swelling, uvula midline, right tonsillar enlargement, Chelosis on right angle of mouth Respiratory/pulmonary: Clear lungs bilaterally, vesicular murmurs present in almost all lung delgado, no associated crackles or wheezes. Cardiovascular: Normal heart sounds S1 and S2 with no associated murmurs Abdomen: Abdomen nondistended, there is no pain to palpation in any of the abdominal quadrants, no palpable masses. Extremities: There is no peripheral edema present at the lower extremities. Peripheral Pulses: 3+ Radial (R). 3+ Radial (L). 3+ Dorsalis pedis (R). 3+ Dorsalis pedis(L) Skin: No rashes or pruritus, there is no sacral edema present at this time. Neurological: Intact cranial nerves with no focal neurologic deficits laboratory and microbiology Laboratory Tests 06/19/25 10:36 06/18/25 17:22 Test 06/19/25 10:36 Range/Units Serum Glucose 120 H 74-106 mg/dL Microbiology Date/Time Source Procedure Growth Status 06/18/25 17:22 Blood Blood Culture - Preliminary NO GROWTH AFTER 24 HOURS OF INCUBATION. Resulted Problem List/Assessment/Plan Problem List/Assessment/Plan # Acute grade 3 tonsillitis #Donnie angina # Acute pharyngitis # Ruled out anaphylaxis - CT maxilla facial showed Asymmetric prominence of the [id number]-left palatine tonsils - CT neck Chronic fracture of the tip of the dens. There is also widening of the atlantodental interval that may be chronic or related to acute ligamentous injury at the craniocervical junction. -group a strep rapid test- positive -urine toxicology negative - IV clindamycin and levofloxacin - IV methylprednisolone - IV Morphine as needed - surgical recs Continue with antibiotics Despite denying unprotected sexual intercourse, consider acute HIV infection # Dysphagia due to acute tonsillits -- IV clindamycin levofloxacin -dexamethasone - IV Morphine as needed # Asthma, stable - albuterol nebulization # Obstructive sleep apnea - outpatient sleep study scheduled for next month -avoid CPAP for now due to pain # hyperthyroidism - methimazole 5 mg p.o. t.i.d. - Low TSH and normal free T4 and total T3 # Migraines Topiramate # vitamin-D deficiency Vitamin-D level 29.4 Vitamin-D 71721 units p.o. q.week # Morbid Obesity BMI 36.4 -patient counseled on weight loss, diet, lifestyle modifications for 11 minutes PPI prophylaxis: Pantoprazole DVT prophylaxis: Ambulatory Goals of care discussions. More than 21 minute spent with patient. Full code status. Case discussed with Dr. Celestin Plan discussed with: Patient, Other My Orders My Orders Orders - JOAN CRUM RESIDENT Procedure Category Date Status Time Levofloxacin 500mg PHA 06/20/25 In Process (Levaquin 500mg/ 100m 10:00 Nystatin PHA 06/19/25 In Process (Mouth-Throat) 12:00 Albuterol Medneb PHA 06/20/25 Logged (Ventolin Medneb) 06:00 Basic Metabolic Panel LAB 06/20/25 Verified 04:00 Complete Blood Count LAB 06/20/25 Verified 04:00 JOAN CRUM RESIDENT Jun 19, 2025 19:45 BARBRA DOMINGO RESIDENT Jun 22, 2025 14:50
[2025-06-19] MEDS: ERGOCALCIFEROL 50,000 UNIT(1.25MG) CAP PO SCH (21:30)
[2025-06-19] MEDS: TOPIRAMATE 25 MG TAB PO PRN (22:05)
[2025-06-20] VITALS (9 sets, daily range): BP systolic 103–138; BP diastolic 76–96; PULSE 68–92; RESP 12–18; TEMP 97.5–98.2; O2SAT 97–100
[2025-06-20] MEDS: ALBUTEROL SULF 2.5 MG/0.5ML(0.5%) NEB SOLN NEB SCH (06:00)
[2025-06-20 06:57] LABS: Hematocrit 38.9 % (36.0-46.0); Hemoglobin 13.6 g/dL (12.2-16.2); Mean Corpuscular Hemoglobin 29.0 pg (28.0-32.0); Mean Corpuscular Volume 83.1 fL (80.0-100.0); Nucleated Red Blood Cells % 0.1 %
[2025-06-20 07:03] LABS: Anion Gap 10 (5-15); Calcium 9.3 mg/dL (8.7-10.4); Carbon Dioxide 23 mmol/L (20-31); Chloride 105 mmol/L (98-107); Potassium 3.9 mmol/L (3.5-5.1); Sodium 138 mmol/L (136-145)
[2025-06-20 07:09] LABS: BUN/Creatinine Ratio 9.1 (10.0-20.0); Glucose 93 mg/dL (74-106)
[2025-06-20 07:23] LABS: Blood Urea Nitrogen 8 mg/dL (9-23)
[2025-06-20] MEDS ORDERED: ERGOCALCIFEROL 50,000 UNIT(1.25MG) CAP PO SCH (08:30)
[2025-06-20] MEDS: methylPREDNISolone SOD SUCC 40 MG/ML VL IV SCH (10:11)
--- NOTE | 2025-06-20 11:24 | DVHDSRES ---
Discharge Summary Date of Admission Resident Creating Document: JOAN CRUM RESIDENT Jun 18, 2025 at 22:52 Date of Discharge: Jun 20, 2025 Labs/Diagnostic Data: Laboratory Results Test 06/20/25 06:00 06/19/25 11:00 06/19/25 10:36 06/19/25 06:49 White Blood Count 9.0 10^3/uL (4.4-10.8) Red Blood Count 4.68 10^6/uL (4.0-5.20) Hemoglobin 13.6 g/dL (12.2-16.2) Hematocrit 38.9 % (36.0-46.0) Mean Corpuscular Volume 83.1 fL (80.0-100.0) Mean Corpuscular Hemoglobin 29.0 pg (28.0-32.0) Mean Corpuscular Hemoglobin Concent 34.9 g/dL (32.0-36.0) Red Cell Distribution Width 15.2 % (11.8-14.3) Platelet Count 434 10^3/uL (140-450) Mean Platelet Volume 7.8 fL (6.9-10.8) Neutrophils (%) (Auto) 46.7 % (37.0-80.0) Lymphocytes (%) (Auto) 41.0 % (10.0-50.0) Monocytes (%) (Auto) 10.3 % (0.0-12.0) Eosinophils (%) (Auto) 1.2 % (0.0-7.0) Basophils (%) (Auto) 0.8 % (0.0-2.0) Neutrophils # (Auto) 4.2 10 ^3/uL (1.6-8.6) Lymphocytes # (Auto) 3.7 10 ^3/uL (0.4-5.4) Monocytes # (Auto) 0.9 10 ^3/uL (0-1.3) Eosinophils # (Auto) 0.1 10 ^3/uL (0-0.8) Basophils # (Auto) 0.1 10 ^3/uL (0-0.2) Nucleated Red Blood Cells 0.1 % Sodium Level 138 mmol/L (136-145) Potassium Level 3.9 mmol/L (3.5-5.1) Chloride Level 105 mmol/L (98-107) Carbon Dioxide Level 23 mmol/L (20-31) Anion Gap 10 (5-15) Blood Urea Nitrogen 8 mg/dL (9-23) Creatinine 0.88 mg/dL (0.550-1.02) Glomerular Filtration Rate Calc 82 mL/min (>90) BUN/Creatinine Ratio 9.1 (10.0-20.0) Serum Glucose 93 mg/dL (74-106) Calcium Level 9.3 mg/dL (8.7-10.4) HIV (1&2) Antibody Negative (Negative) Group A Streptococcus Rapid Positive Prothrombin Time 11.1 sec (9.3-11.8) Prothrombin Time INR 1.05 (0.9-1.15) Activated Partial Thromboplast Time 31.7 SEC (24.5-34.5) Hemoglobin A1c 5.8 % A1C (<5.7) Lactic Acid Level 0.8 mmol/L (0.4-2.0) Magnesium Level 2.1 mg/dL (1.6-2.6) Total Bilirubin 0.8 mg/dL (0.2-1.0) Aspartate Amino Transferase (AST) 13 U/L (13-40) Alanine Aminotransferase (ALT) < 9 U/L (7-40) Alkaline Phosphatase 104 U/L (46-116) Total Protein 8.8 g/dL (5.7-8.2) Albumin 4.4 g/dL (3.2-4.8) Triglycerides Level 55 mg/dL (< 150) Cholesterol Level 144 mg/dL (< 200) LDL Cholesterol 96 mg/dL (< 100) HDL Cholesterol 37 mg/dL (40-59) Vitamin B12 Level 691 pg/mL (211-911) Vitamin D 25-Hydroxy 29.4 ng/mL (30.0-100) Thyroid Stimulating Hormone (TSH) < 0.01 uIU/mL (0.55-4.78) Urine Color Light-yellow (Yellow) Urine Clarity Clear (Clear) Urine pH 7.0 (5.0-9.0) Urine Specific [place] 1.011 (1.001-1.035) Urine Protein Negative (Negative) Urine Ketones Negative (Negative) Urine Blood Trace /uL (Negative) Urine Nitrite Negative (Negative) Urine Bilirubin Negative (Negative) Urine Urobilinogen Normal mg/dL (Negative) Urine Leukocyte Esterase Negative /uL (Negative) Urine RBC 1 /hpf (0 - 4) Urine Microscopic WBC 3 /HPF (0-5) Urine Squamous Epithelial Cells Few /hpf (<5) Urine Bacteria Few /hpf (None Seen) Urine Glucose Normal mg/dL (Normal) Urine Opiates Screen Neg (NEGATIVE) Urine Fentanyl Screen Neg (NEGATIVE) Urine Barbiturates Screen Neg (NEGATIVE) Urine Phencyclidine Screen Neg (NEGATIVE) Urine Amphetamines Screen Neg (NEGATIVE) Urine Benzodiazepines Screen Neg (NEGATIVE) Urine Cocaine Screen Neg (NEGATIVE) Urine Cannabinoids Screen Neg (NEGATIVE) Other Laboratory Tests 06/20/25 06:00 Brief Hx & Hospital Course: This is a 44-year-old female with past medical history of essential hypertension, migraine, thyroid disorder, MAYTE was use CPAP , hysterectomy came to ER with a complaint of right-sided angle of the mandible swelling and difficult to swallow for last 3 days. The patient stated her views swelling is getting worse day by day which is 10/10 intensity, sharp in nature, aggravated on swallowing and radiates to right neck area. Patient denies any recent dental extraction or any dental workup. Patient history of sick contact follow trauma. Patient denies any drain this from any of her teeth or gums. He has had multiple extractions in the past and currently has a fracture molar on the lower left side. Currently denies any fever, chest pain, headache, abdominal pain, dysuria or any other acute distress. Medical history:essential hypertension, migraine, thyroid disorder, MAYTE was use CPAP Surgical history: Hysterectomy Family history: Reviewed, noncontributory Personal history: Denies smoking, drinking, drug use Lives with: Family PCP: Hospital course: Patient admitted due to acute grade 3 tonsillitis with group a strep rapid test- positive, ruled out anaphylaxis (patient believed the antibiotic worsened her swelling). During admission, patient having severe swallowing difficulty including drooling of saliva, odynophagia. Patient treated conservatively with IV antibiotic and IV steroid. Patient's symptoms significantly improved. Patient able to tolerate diet gradually and currently on regular diet. CT maxillofacial area without contrast: Asymmetric prominence of the kotql-eqxgtyp-djci-left palatine tonsils and correlate with clinical exam for tonsillitis. CT neck shows No evidence of acute fracture of the cervical spine. Chronic fracture of the tip of the dens. There is also widening of the atlantodental interval that may be chronic or related to acute ligamentous injury at the craniocervical junction. Moderate degenerative disc disease C3-C7. Patient evaluated today and denies any fever, SOB, chest pain, swallowing difficulty, abdominal pain or any other acute distress. patient discharged with 5 more days of p.o. steroid and oral antibiotic clindamycin and levofloxacin for 7 days. Advised to continue other home medication. Patient is hemodynamically stable for discharge. The patient has received maximum benefits from inpatient treatment. Time was given to answer patient/ parents questions and concerns in Layman terms. patient verbalized understanding and agree with treatment and follow-up. Patient was recommended to return to the ED if she experiences any worsening symptoms such as, but not limited to current symptoms. Continue home medication. Follow-up with PCP and discharge Clinic within 2 weeks on Tuesday morning. Physical examination Constitutional: No: Fever, Chills, Sweats, Weakness, Malaise, Other Eyes: No: Pain, Vision change, Conjunctivae inflammation, Eyelid inflammation, Other, Redness ENT: No: Ear pain, Ear discharge, Nose pain, Nose discharge, Nose congestion, Mouth pain, Mouth swelling, Throat pain, Throat swelling, Other Respiratory: Shortness of breath; No: Cough, Dry, SOB with excertion, Wheezing, Hemoptysis, Pleuritic Pain, Sputum, Wheezing, Other Cardiovascular: No: Chest Pain, Palpitations, Orthopnea, Paroxysmal Noc. Dyspnea, Edema, Lt Headedness, Other Gastrointestinal: No: Nausea, Vomiting, Abdominal Pain, Diarrhea, Constipation, Melena, Hematochezia, Other Genitourinary: No Dysuria, No Frequency, No Incontinence, No Hematuria, No Retention, No Other Musculoskeletal: No: other, neck pain, shoulder pain, arm pain, back pain, hand pain, leg pain, foot pain Skin: No: Rash, Lesions, Jaundice, Bruising, Other Neurological: No: Weakness, Numbness, Incoordination, Change in speech, Confusion, Seizures. Discussed with Dr. Celestin, patient, nurse. Operations or Procedures ORDERING PHYSICIAN: SUMA CALVERT MD PROCEDURE(s): FAC2C - MAXILLOFACIAL WITHOUT REASON: R face/neck pain/swelling ORDER NUMBER(s): [id number], ACCESSION NUMBER(s): [id number] CT MAXILLOFACIAL WITHOUT INDICATION: R face/neck pain/swelling TECHNIQUE: Noncontrast axial images of the facial bones are then obtained along with coronal and sagittal reformatted images. All CT scans at this facility use dose modulation, iterative reconstruction, and/or weight based dosing when appropriate to reduce radiation dose to as low as reasonably achievable. COMPARISON: CT PELVIS WO CONTRAST on DOS: 07/16/24 FINDINGS: Asymmetric prominence of the uxtzb-iykgnpe-emnj-left palatine tonsils and correlate with clinical exam for tonsillitis. No definitive drainable fluid collection. Multiple prominent bilateral cervical chain lymph nodes. Parotid glands are symmetric. Submandibular glands are symmetric. Thyroid gland is symmetric. Minimal to mild scattered paranasal sinus opacification. Dental cavities and underlying gingival infection can not be excluded and recommend direct visualization if clinically indicated IMPRESSION: 1. Asymmetric prominence of the iydqo-imywkzc-hhws-left palatine tonsils and correlate with clinical exam for tonsillitis. 2. If continued clinical concern, consider further evaluation with intravenous contrast. ATED BY: LATASHA MOORE MD DICTATED DATE/TIME: 06/18/25 1800 ORDERING PHYSICIAN: SUMA CALVERT MD PROCEDURE(s): NKICT - NECK WITHOUT CONTRAST REASON: R face/neck pain/swelling ORDER NUMBER(s): [id number], ACCESSION NUMBER(s): [id number] COMPUTERIZED TOMOGRAPHY OF THE CERVICAL SPINE, NONCONTRAST REASON FOR EXAM: R face/neck pain/swelling COMPARISON: US THYROID on DOS: 07/13/24, CT HEAD WITHOUT CONTRAST on DOS: 11/18/23 TECHNIQUE: CT of the entire cervical spine was performed in routine fashion with sagittal and coronal reconstructions. Soft tissues and bone windows were filmed. Radiation optimization: All CT scans at this facility use at least one of these dose optimization techniques: Automated exposure control mA and/or kV adjustment per patient size (includes targeted exams where dose is matched to clinical indication) or iterative reconstruction. RADIATION DOSE: CTDI: 27 mGy DLP: 698 mGy-cm FINDINGS: The vertebral bodies are normal in height and alignment with no evidence of fracture. There is mild reversal of the normal cervical lordosis which may be secondary to patient positioning or muscular spasm. There is moderate disc height loss C3-C7 with endplate hypertrophy. No severe bony neural foraminal or spinal canal narrowing is identified. 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 There is chronic fracture of the tip of the dens. There is widening of the atlantodental interval. No acute fracture is identified. There are numerous borderline enlarged lymph nodes in the anterior cervical chain bilaterally. The prevertebral soft tissues are within normal limits. The visualized lung apices are grossly clear. IMPRESSION: No evidence of acute fracture of the cervical spine. Chronic fracture of the tip of the dens. There is also widening of the atlantodental interval that may be chronic or related to acute ligamentous injury at the craniocervical junction. Further evaluation with MRI is recommended. Moderate degenerative disc disease C3-C7. ATED BY: HUANG PANDYA MD DICTATED DATE/TIME: 06/18/251805 Condition at Discharge: Stable Final Diagnosis/Problems List Acute grade 3 tonsillitis Donnie angina Acute pharyngitis viral/bacterial Ruled out aaphylaxis Essential hypertension, Migraine, Thyroid disorder, Obstructive sleep apnea Vitamin-D deficiency Asthma, stable Moderate degenerative disc disease C3-C7 H/O hysterectomy Morbid Obesity, BMI 36.4 Discharge Disposition: Home Discharge Instruct/Medications Diet: Regular Activity: No Restrictions, As Tolerated Follow Up/Referral: PCP Outpatient clinic within 2 weeks after discharge Scheduled Albuterol Sulfate (Ventolin), 2.5 MG NEB Q6HWA Clindamycin Hcl (Clindamycin Hcl), 300 MG PO TID Ergocalciferol (Vitamin D 18753 Unit), 50,000 UNIT PO Q7D Levofloxacin Hemihydrate (Levofloxacin), 1 TAB PO DAILY Lisinopril (Lisinopril), 5 MG PO DAILY, (Reported) Methimazole (Methimazole), 5 MG PO TID, (Reported) Nystatin (Mouth-Throat) (Mycostatin (Mouth-Throat)), 5 ML MT QID Prednisone (Prednisone), 5 MG PO DAILY Scheduled PRN Topiramate (Topiramate), 1 TAB PO BID PRN for MIGRAINE/PORTILLO, (Reported) Discharge Statement: "Patient was advised to return to the ER or call 911 if any headaches, dizziness, shortness of breath, chest pain, abdominal pain, bleeding, fevers, or worsening of medical condition. Patient was counseled about treatment plan, medications, possible side effects, patientverbalized understanding. All questions were answered to the best of my ability. This discharge took greater then 30 minutes in planning, reviewing documentation, counseling the patient, and discussing with other team members." ASSESSMENT ASSESSMENT Assessment Acute Grede 3 tonsilitis JOAN CRUM RESIDENT Jun 20, 2025 11:24 BARBRA DOMINGO RESIDENT Jun 22, 2025 14:51
[2025-06-20] MEDS ORDERED: ALB5IS NEB (11:54)
[2025-06-20] MEDS ORDERED: PRED1PAK7 PO (11:54)
[2025-06-20] MEDS ORDERED: ERGO1CAP23 PO (11:54)
[2025-06-20] MEDS ORDERED: CLIN1CAP70 PO (11:54)
[2025-06-20] MEDS ORDERED: NYS5LQ MT (11:54)
[2025-06-20] MEDS ORDERED: LEVO500T91 PO (11:54)
[2025-06-20 14:00] LABS: Free T4 (Free Thyroxine) 1.22 ng/dL (0.89-1.76)
== END 2025-06-20 13:00 | disposition home or self-care (01) | DRG 153 ==
LOC: ER 15:37 → OVERFLOW 22:52 → CENTRAL 06-19 05:18
PROVIDERS: ADMIT Student in an Organized Health Care Education/Training Program; ATTEND Emergency Medicine
DX: J03.00 Acute streptococcal tonsillitis, unspecified (principal); L03.211 Cellulitis of face; K12.2 Cellulitis and abscess of mouth; R13.10 Dysphagia, unspecified; E03.9 Hypothyroidism, unspecified; J45.909 Unspecified asthma, uncomplicated; Z68.36 Body mass index [BMI] 36.0-36.9, adult; E66.01 Morbid (severe) obesity due to excess calories; I10 Essential (primary) hypertension; E05.90 Thyrotoxicosis, unspecified without thyrotoxic crisis or storm; G47.33 Obstructive sleep apnea (adult) (pediatric); G43.909 Migraine, unspecified, not intractable, without status migrainosus; K04.7 Periapical abscess without sinus; E55.9 Vitamin D deficiency, unspecified; Z88.0 Allergy status to penicillin; M50.322 Other cervical disc degeneration at C5-C6 level; Z90.710 Acquired absence of both cervix and uterus
CPT/HCPCS: 36415; 70486; 70490; 80048; 80053; 80061; 80307; 81001; 82306; 82607; 83036; 83605; 83735; 84439; 84443; 84480; 85025; 85610; 85730; 86703; 87040; 87880; 94640; 96365; 96375; G0378; J1100; J1956; J2405; J3490